=== PATIENT | female | born 1990 | race Caucasian/White ===

== ENCOUNTER 2018-07-01 13:12 | Emergency (ER) | payer OTHER ==
[2018-07-01 13:27] VITALS: BP 126/73
[2018-07-01 13:45] LABS: BILIRUBIN,URINE NEGATIVE (NEGATIVE); GLUCOSE, URINE (UA) NEGATIVE (NEGATIVE); KETONES,URINE (UA) NEGATIVE (NEGATIVE); LEUKOCYTE ESTERASE, URINE MODERATE (NEGATIVE); NITRITE,URINE NEGATIVE (NEGATIVE); OCCULT BLOOD,URINE SMALL (NEGATIVE); PROTEIN,URINE NEGATIVE (NEGATIVE); UROBILINOGEN,URINE 0.2 (NORMAL) E.U./dL (NORMAL)
[2018-07-01 13:46] LABS: CLARITY,URINE SL. CLOUDY (CLEAR)
[2018-07-01 13:57] LABS: BACTERIA,URINE Many /HPF (None Seen); SQUAMOUS EPITHELIAL CELL,UR RARE Squamous (<= Few)
[2018-07-01] MEDS ORDERED: NITROFURANTOIN MACRO 100 MG CAPSULE PO STA (15:39)
--- NOTE | 2018-07-01 15:43 | ED Physician Documentation ---
PD HPI FEMALE - Stated complaint Stated Complaint: FEM /5 WKS - Chief complaint Chief Complaint: UTI - History obtained from History obtained from: Patient - History of Present Illness Timing - onset: Yesterday (27-year-old woman with history of UTI, 5 weeks , developed dysuria and frequency yesterday without flank pain or fevers. Had a recent UTI treated with Macrobid which was helpful.) Review of Systems Constitutional: denies: Fever, Chills GI: reports: Nausea. denies: Abdominal Pain : reports: Dysuria, Frequency PD PAST MEDICAL HISTORY - Present Medications Home Medications: Ambulatory Orders Medication Instructions Recorded Confirmed Nitrofurantoin Monohyd/M-Cryst 100 mg PO BID #10 capsule 07/01/18 [Macrobid 100 mg Capsule] Pnv No.122/Iron/Folic Acid 1 07/01/18 [ Multi Tablet] - Allergies Allergies/Adverse Reactions: Allergies Allergy/AdvReac Type Severity Reaction Status Date / Time sulfamethoxazole Allergy Rash Verified 07/01/18 13:27 [From ] trimethoprim [From ] Allergy Rash Verified 07/01/18 13:27 PD ED PE NORMAL - Vitals Vital signs reviewed: Yes - General General: Alert and oriented X 3, No acute distress - Abdomen Abdomen: Soft, Non tender - Back Back: No CVA TTP - Neuro Neuro: Alert and oriented X 3, Normal speech Results - Vitals Vitals: Vital Signs - 24 hr 07/01/18 13:25 Temperature 36.8 C Heart Rate 96 Respiratory 18 Rate Blood Pressure 126/73 O2 Saturation 100 Oxygen O2 Source Room air - Labs Labs: Laboratory Tests 07/01/18 13:38 Urine Color YELLOW Urine Clarity SL. CLOUDY Urine pH 7.0 Ur Specific [place] 1.020 Urine Protein NEGATIVE Urine Glucose (UA) NEGATIVE Urine Ketones NEGATIVE Urine Occult Blood SMALL H Urine Nitrite NEGATIVE Urine Bilirubin NEGATIVE Urine Urobilinogen 0.2 (NORMAL) Ur Leukocyte Esterase MODERATE H Urine RBC 11-25 H Urine WBC >25 H Ur Squamous Epith Cells RARE Squamous Urine Bacteria Many H Ur Microscopic Review INDICATED Urine Culture Comments INDICATED Departure - Departure Disposition: 01 Home, Self Care Clinical Impression: Cystitis Condition: Good Record reviewed to determine appropriate education?: Yes Instructions: ED UTI Cystitis Female Prescriptions: Nitrofurantoin Monohyd/M-Cryst [Macrobid 100 mg Capsule] 100 mg PO BID #10 capsule Comments: We will culture your urine, the results should be done in 48-72 hours. If an antibiotic change is necessary we will call you. Return if worse in the meantime, especially if you develop increasing flank pain, fevers, or cannot keep down the medication.
== END 2018-07-01 15:54 | disposition home or self-care (01) ==
LOC: ED 13:12
DX: O23.11 Infections of bladder in pregnancy, first trimester (principal); Z3A.01 Less than 8 weeks gestation of pregnancy
CPT/HCPCS: 81001; 87086; 87491; 87591; 99283; A9270; 81003

== ENCOUNTER 2022-06-28 15:36 | Outpatient (CLI) | payer OTHER ==
--- NOTE | 2022-06-28 17:24 | Ultrasound Report ---
PROCEDURE: OB 14+ Weeks INDICATIONS: SUPERVISION OF OUTSIDE/PRIOR DATING DATA: Last menstrual period (LMP): 03/18/2022. LMP-based estimated date of delivery (YAYA): 12/23/2022. First dating scan (date and location): 06/28/2022. Estimated date of delivery (YAYA) from first dating scan: 01/04/2023. The below data below was generated using the ultrasound YAYA of 01/04/2023 TECHNIQUE: Real-time scanning was performed of the fetus, with image documentation and biometric measurements. COMPARISON: None. FINDINGS: General: A single living intrauterine gestation is present. Placenta: Placental position is anterior, without previa. heart rate: No heartbeat identified Maternal cervical canal: 4.2 cm long; normal length is 2.5 cm or more. biometrics: Biparietal diameter: 1.9 cm. 13 weeks 0 days Head circumference: 7.8 cm. 13 weeks 2 days Abdominal circumference: 6.3 cm. 13 weeks 0 days Femur length: 8.9 cm. 12 weeks 5 days Estimated weight and percentile: 65.7 g. Less than 0.5% Measurement variability for biometric dating: +/- 10 days from 12-20 weeks gestation, +/- 2 weeks fro m 20-30 weeks gestation, +/- 3 weeks for 30 weeks gestation or later. IMPRESSION: Findings are consistent with demise. An intrauterine is identified measu ring 12 weeks 6 days, however there is no heart rate. Reviewed by: Meño Munoz on 06/28/2022 5:23 PM PST Approved by: Meño Munoz on 06/28/2022 5:23 PM PST Station ID: [id number]
== END 2022-06-28 15:37 | disposition home or self-care (01) ==
LOC: DI 15:36
PROVIDERS: ATTEND Midwife
DX: O36.8310 Maternal care for abnormalities of the fetal heart rate or rhythm, first trimester, not applicable or unspecified (principal); Z3A.12 12 weeks gestation of pregnancy

== ENCOUNTER 2022-06-29 13:17 | Emergency (ER) | payer OTHER ==
[2022-06-29 13:34] VITALS: BP 124/76
--- NOTE | 2022-06-29 13:47 | ED Physician Documentation ---
PD HPI FEMALE - Stated complaint Stated Complaint: FEMALE - Chief complaint Chief Complaint: Abd Pain - History obtained from History obtained from: Patient - History of Present Illness Timing - onset: How many days ago (The patient went to her customer specialist 4 days ago for routine care. heartbeat was not located. Outpatient ultrasound ordered which was done yesterday showing intrauterine demise at 12 weeks gestation. Her customer specialist referred her here for WASTE WATER OR WATER PLANT OPERATOR consultation.) Timing - details: Other (The patient is not having any abdominal cramps vaginal bleeding nor discharge. No fevers.) Associated symptoms: No: Fever, Abdominal pain, Vaginal bleeding Contributing factors: (14 weeks by dates) OB-WORK AND FAMILY LIFE CONSULTANT History: G (4), P (3) Similar symptoms before: Has not had sx before Recently seen: Clinic Review of Systems Constitutional: reports: Other (denies recent URI/flu symptoms. Blood type O- pos). denies: Fever, Chills Nose: denies: Rhinorrhea / runny nose, Congestion Throat: denies: Sore throat Respiratory: denies: Cough GI: denies: Abdominal Pain, Vomiting, Diarrhea : denies: Discharge, Vaginal bleeding PD PAST MEDICAL HISTORY - Past Medical History Cardiovascular: None Respiratory: None Endocrine/Autoimmune: None GI: None WORK AND FAMILY LIFE CONSULTANT: None - Past Surgical History Past Surgical History: No - Present Medications Home Medications: Ambulatory Orders Medication Instructions Recorded Confirmed No122/Iron/Folic Acid 1 tab ORAL DAILY 07/01/18 06/29/22 [ Multi Tablet] Naproxen 500 mg PO BID #20 tab 06/29/22 Ondansetron Odt [Zofran] 4 mg TL Q6H PRN #10 tablet 06/29/22 miSOPROStoL [Cytotec] 800 mcg PO ONCE #4 tablet 06/29/22 - Allergies Allergies/Adverse Reactions: Allergies Allergy/AdvReac Type Severity Reaction Status Date / Time sulfamethoxazole Allergy Rash Verified 06/29/22 13:34 [From ] trimethoprim [From ] Allergy Rash Verified 06/29/22 13:34 - Social History Does the pt have substance abuse?: No - Immunizations Immunizations are current?: Yes PD ED PE NORMAL - Vitals Vital signs reviewed: Yes - General General: Alert and oriented X 3, No acute distress, Well developed/nourished - Abdomen Abdomen: Normal bowel sounds, Soft, Non distended, No organomegaly, Other (bedside U/S showing IUP about 12 weeks size, without visible heartbeat nor movement. ) - Neuro Neuro: Alert and oriented X 3, No motor deficit, Normal speech Results - Vitals Vitals: Vital Signs - 24 hr 06/29/22 13:28 Temperature 36.4 C L Heart Rate 93 Respiratory 16 Rate Blood Pressure 124/76 O2 Saturation 100 Oxygen O2 Source Room air PD MEDICAL DECISION MAKING - ED course Complexity details: reviewed old records (US report from yesterday.), d/w patient, d/w reimbursement consultant (Dr. Perla, showroom consultant for WORK AND FAMILY LIFE CONSULTANT, who will see patient in the ER. ) Departure - Departure Disposition: Home, Self Care Clinical Impression: IUFD at less than 20 weeks of gestation, Incomplete miscarriage Condition: Good Record reviewed to determine appropriate education?: Yes Plan of Treatment: Patient would like to use Misoprostol 800 mcg orally times one dose starting early tomorrow morning. Risks and benefits were reviewed with patient. Miscarriage and bleeding precautions were reviewed with patient. She should call our OB department for further instructions if she does not respond to treatment after 24 hours. Instructions: Miscarriage During, Miscarriage Recovery, ED Miscarriage Inevitable Follow-Up: Isa Carey, LEANNE [Primary Care Provider] - Prescriptions: miSOPROStoL [Cytotec] 800 mcg PO ONCE #4 tablet Naproxen 500 mg PO BID #20 tab Ondansetron Odt [Zofran] 4 mg TL Q6H PRN #10 tablet PRN Reason: Nausea / Vomiting Comments: Take the misoprostol/Cytotec 800 mcg (4 tablets) tomorrow morning as directed by the linoleum printer. Stay well-hydrated. Anticipate cramping bleeding and nausea as discussed by the linoleum printer. I did prescribe ondansetron if needed for nausea and naproxen anti-inflammatory to use twice daily with food for the next several days to week. Add Tylenol if needed. Return to the ER if significant symptoms as discussed by the linoleum printer. I sent your prescription to [facility] pharmacy.
--- NOTE | 2022-06-29 15:55 | HISTORY & PHYSICAL EXAMINATION ---
History and Physical - History and Physical Patient is a 31 year old female, at 15 weeks gestation by dates who was noted to have a demise with a fetus measuring equivalent to 12 weeks gestation on 06/28/22. She presents to the ER due to instructions by her section laborer provider. Patient is asymptomatic and denies of vaginal disharge, bleeding or cramping. Her blood type is O positive. We reviewed her US findings which was confirmed by bedside US completed by ER provider on todays visit. We reviewed the risks and benefits of continued expectant management, Cytotec induced , vs. elective suction D&C. She would like to proceed with Cytotec induced . All tissue should be saved to aid in the ident ification of products of conception. The risk and benefits of Cytotec was reviewed. We also discussed bleeding precautions. control options were discussed with patient following this . She does not desire contraception at this time. PMH/PSH - Past Medical History Respiratory: positive: None Neuro: positive: None Endocrine/Autoimmune: positive: None GI: positive: None MEDICAL SALES ASSOCIATE: positive: None : positive: None HEENT: positive: None Psych: positive: None Musculoskeletal: positive: None Derm: positive: None MRSA Hx?: No Family/Social History - Family History Discussion: Mother has a history of DVTs. - Social History Discussion: Patient denies tobacco, recreational drugs or alcohol during . She lives with her spouse and 3 children. Physical Exam - Physical Exam General: positive: No acute distress (Patient declined physical exam. She reports recent exam with her section laborer.) Discharge Plan Problem Reviewed?: Yes Disposition: 01 Home, Self Care Condition: Good Diet: Regular Shower Restrictions: No Driving Restrictions: No Weight Bearing: Full Weight Instruction Topics: Miscarriage Recovery, Miscarriage During, ED Miscarriage Inevitable Plan of Treatment: Patient would like to use Misoprostol 800 mcg orally times one dose starting early tomorrow morning. Risks and benefits were reviewed with patient. Miscarriage and bleeding precautions were reviewed with patient. She should call our OB department for further instructions if she does not respond to treatment after 24 hours. Assessment: Inevitable, missed spontaneous confirmed by US on 06/28/22. No Smoking: If you smoke, Please STOP! Call for help. Follow-up with: Isa Carey, LEANNE [Primary Care Provider] - Leobardo Nino MD [Provider Admit Priv/Credential] -
--- NOTE | 2022-06-30 19:49 | PROVIDER PROGRESS NOTE ---
Subjective - Prog Note Date Prog Note Date: 06/30/22 Prog Note Time: 19:45 Assessment/Plan - Problem List (1) Incomplete miscarriage Impression: Discussed with patient's primary provider Isa Carey billing services manager at [facility] Patient was evaluated by tree expert yesterday in ER and was given 800 mcg of cytotec after being counseled on risks, benefits, and alternatives. Patient is having some bleeding but not passing tissue. Discussed recommended cytotec 2nd dose 800 mcg. Patient has been counseled on risk of bleeding and advised to go to ER if soaking 3-4 pads per hour. Blood type is O+. If patient does not pass have recommended a formal property manager consult in the office next week.
== END 2022-06-29 16:15 | disposition home or self-care (01) ==
LOC: ED 13:17
DX: O03.4 Incomplete spontaneous abortion without complication (principal)
CPT/HCPCS: 99283

== ENCOUNTER 2022-07-01 23:12 | Emergency (ER) | payer OTHER ==
--- NOTE | 2022-07-01 23:41 | ED Physician Documentation ---
PD HPI FEMALE - Stated complaint Stated Complaint: FEMALE /BLEEDING - Chief complaint Chief Complaint: Abd Pain - History obtained from History obtained from: Patient, Other (Prior records) - Additional information Additional information: Patient is a 31-year-old female, G4, P3 Presenting for evaluation of lower abdominal cramping and heavy vaginal bleeding. Pt was approximately 15 weeks gestation who was noted to have a demise with fetus estimated to be around 12 weeks on 06/28/22. She was seen in the ER on the following day, June 29, And evaluated by WASTEWATER OPERATOR, Dr. Perla. He offered treatment options and she elected to proceed with Cytotec induced . She took 1 dose of Cytotec. She started to have bleeding yesterday and Passed the fetus In the sac in the evening.Her bleeding and pain had improved throughout today until this evening around 10:00 when she started to feel severe contractions and started having heavy vaginal bleeding. She reports already soaking through a depends and is passing clots. She does report feeling dizzy and lightheaded. Review of Systems Constitutional: denies: Fever Nose: denies: Congestion Cardiac: denies: Chest pain / pressure Respiratory: denies: Dyspnea GI: reports: Abdominal Pain. denies: Vomiting : reports: Vaginal bleeding Musculoskeletal: denies: Back pain Neurologic: denies: Syncope, Headache PD PAST MEDICAL HISTORY - Past Medical History Cardiovascular: None Respiratory: None Neuro: None Endocrine/Autoimmune: None GI: None LOCAL DELIVERY DRIVER: None : None HEENT: None Psych: None Musculoskeletal: None Derm: None - Past Surgical History Past Surgical History: No HEENT: Other - Present Medications Home Medications: Ambulatory Orders Medication Instructions Recorded Confirmed No122/Iron/Folic Acid 1 tab ORAL DAILY 07/01/18 07/01/22 [ Multi Tablet] Naproxen 500 mg PO BID #20 tab 06/29/22 07/01/22 Ondansetron Odt [Zofran] 4 mg TL Q6H PRN #10 tablet 06/29/22 07/01/22 miSOPROStoL [Cytotec] 800 mcg PO ONCE #4 tablet 06/29/22 07/01/22 - Allergies Allergies/Adverse Reactions: Allergies Allergy/AdvReac Type Severity Reaction Status Date / Time sulfamethoxazole Allergy Rash Verified 07/01/22 23:29 [From ] trimethoprim [From ] Allergy Rash Verified 07/01/22 23:29 - Social History Does the pt smoke?: No Smoking Status: Never smoker Does the pt drink ETOH?: No Does the pt have substance abuse?: No - Immunizations Immunizations are current?: Yes Immunizations: Other immun not current - POLST Patient has POLST: No PD ED PE NORMAL - General General: Alert and oriented X 3, Well developed/nourished, Other (Appears uncomfortable) - HEENT HEENT: Atraumatic, Moist mucous membranes - Neck Neck: Supple, no meningeal sign - Cardiac Cardiac: No murmur, Other (Tachycardic, regular rhythm) - Respiratory Respiratory: No respiratory distress, Clear bilaterally - Abdomen Abdomen: Soft, Other (Lower abdominal tenderness) - Female Female : Technician Preventative Medicine present (Hilda ULLOA), Other (Normal external exam, large amount of clots evacuated from vaginal canal With bleeding, Piece of tissue seen near cervix which I was unable to evacuate Despite use of forceps) - Derm Derm: Warm and dry - Extremities Extremities: No edema Results - Vitals Vitals: Vital Signs - 24 hr 07/01/22 07/01/22 07/02/22 23:18 23:31 00:32 Temperature 36.8 C 36.8 C Heart Rate 111 H 111 H 102 H Respiratory 18 18 20 Rate Blood Pressure 129/82 H 129/82 H 114/76 O2 Saturation 100 100 100 07/02/22 07/02/22 01:50 01:54 Temperature 37.3 C 36.7 C Heart Rate 100 106 H Respiratory 20 18 Rate Blood Pressure 107/49 L 107/49 L O2 Saturation 100 100 Oxygen O2 Source Room air - Labs Labs: Laboratory Tests 07/01/22 07/01/22 07/01/22 23:39 23:39 23:39 WBC 14.0 H RBC 4.00 L Hgb 11.7 L Hct 34.3 L MCV 85.8 MCH 29.3 MCHC 34.1 RDW 13.2 Plt Count 267 MPV 10.0 Neut # (Auto) 10.7 H Lymph # (Auto) 2.4 [place] # (Auto) 0.6 Eos # (Auto) 0.3 Baso # (Auto) 0.0 Absolute Nucleated RBC 0.00 Nucleated RBC % 0.0 Sodium 138 Potassium 3.5 Chloride 105 Carbon Dioxide 22 Anion Gap 11.0 BUN 8 Creatinine 0.5 Estimated GFR (MDRD) 144 Glucose 100 Calcium 9.1 Blood Type O POSITIVE Blood Type Recheck Antibody Screen NEGATIVE 07/01/22 23:42 WBC RBC Hgb Hct MCV MCH MCHC RDW Plt Count MPV Neut # (Auto) Lymph # (Auto) [place] # (Auto) Eos # (Auto) Baso # (Auto) Absolute Nucleated RBC Nucleated RBC % Sodium Potassium Chloride Carbon Dioxide Anion Gap BUN Creatinine Estimated GFR (MDRD) Glucose Calcium Blood Type Blood Type Recheck O POSITIVE Antibody Screen PD MEDICAL DECISION MAKING - ED course Complexity details: reviewed results, re-evaluated patient, d/w patient ED course: Patient presenting for evaluation of pelvic cramping and heavy bleeding, noted earlier in the week to have intrauterine demise and given Cytotec for missed .She was noted to be tachycardic. Labs were obtained. She was given fluid bolus. She declined need for pain medication other than Toradol. On pelvic exam I was able to evacuate all clots but not able to remove tissue from the Cervical also. I did consult with OB who evaluated the patient and was able to Remove the placenta.Per Dr. Brown, no need to send the placenta for pathology. Patient is feeling much better after passing the placenta.Per OB, Patient is able to be discharged home. If her bleeding reoccurs then she would likely need a D&C. Patient is comfortable with plan for discharge and advised on concerning symptoms to return for. 1248 - D/W Dr. Brown after Pelvic exam. She is familiar with the patient's case and will come down to the ER to see her. Departure - Departure Disposition: 01 Home, Self Care Clinical Impression: Miscarriage Condition: Good Instructions: Miscarriage Dc Follow-Up: Carito Brown MD [Provider Admit Priv/Credential] - Comments: Your bleeding and cramping should hopefully improve now that the placenta has come out. Please continue with using NSAIDs such as naproxen or ibuprofen as needed for any discomfort or pain. If you start to have worsening cramping or bleeding again please return to the emergency department. Discharge Date/Time: 07/02/22 01:57
[2022-07-01] MEDS: KETOROLAC 30 MG/ML VIAL IVP STA (23:48)
[2022-07-01] MEDS: SODIUM CHLORIDE 0.9% 1,000 ML IV STA (23:48)
[2022-07-01 23:50] LABS: BASOPHILS % (AUTO) 0.3 %; EOSINOPHILS # (AUTO) 0.3 10^3/uL (0.0-0.7); EOSINOPHILS % (AUTO) 1.9 %; HCT - HEMATOCRIT 34.3 % (37.0-47.0); HGB - HEMOGLOBIN 11.7 g/dL (12.0-16.0); LYMPHOCYTES # (AUTO) 2.4 10^3/uL (1.5-3.5); LYMPHOCYTES % (AUTO) 17.2 %; MEAN CORPUSCULAR HEMOGLOBIN 29.3 pg (27.0-31.0); MEAN CORPUSCULAR HGB CONC 34.1 g/dL (32.0-36.0); MEAN CORPUSCULAR VOLUME 85.8 fL (81.0-99.0); MONOCYTES # (AUTO) 0.6 10^3/uL (0.0-1.0); NEUTROPHILS # (AUTO) 10.7 10^3/uL (1.5-6.6); NEUTROPHILS % (AUTO) 76.3 %; PLT - PLATELET COUNT 267 10^3/uL (130-450); RED CELL DISTRIBUTION WIDTH 13.2 % (12.0-15.0)
[2022-07-02 00:02] LABS: CALCIUM 9.1 mg/dL (8.5-10.3); CREATININE 0.5 mg/dL (0.4-1.0); POTASSIUM 3.5 mmol/L (3.5-5.0)
[2022-07-02 01:51] VITALS: BP 107/49
[2022-07-02] MEDS: MORPHINE 2 MG/ML CARPUJECT IVP STA (01:52)
[2022-07-02] MEDS: ONDANSETRON 4 MG/2 ML VIAL IVP STA (01:53)
--- NOTE | 2022-07-02 01:53 | CONSULTATION NOTE ---
Referring Provider Consult Date: 07/02/22 Chief Complaint - Chief Complaint Chief Complaint: incomplete History of Present Illness - History Obtained From Records Reviewed: Reviewed previous history - History of Present Illness HPI Comment/Other: Patient diagnosed with miscarriage of about 12 weeks in the ER 07/29. She received cytotec and passed tissue yesterday. Today she began having worsening cramping and increased bleeding, soaking a depends. She denies fevers/chills. History - Past Medical History Cardiovascular: reports: None Respiratory: reports: None Neuro: reports: None Endocrine/Autoimmune: reports: None GI: reports: None METALLOGRAPHER: reports: None : reports: None HEENT: reports: None Psych: reports: None Musculoskeletal: reports: None Derm: reports: None MRSA Hx?: No - Past Surgical History HEENT: reports: Other - Family & Social History Living Situation: With family - POLST Patient has POLST: No Meds/Allgy - Home Medications Home Medications: Ambulatory Orders Medication Instructions Recorded Confirmed No122/Iron/Folic Acid 1 tab ORAL DAILY 07/01/18 07/01/22 [ Multi Tablet] Naproxen 500 mg PO BID #20 tab 06/29/22 07/01/22 Ondansetron Odt [Zofran] 4 mg TL Q6H PRN #10 tablet 06/29/22 07/01/22 miSOPROStoL [Cytotec] 800 mcg PO ONCE #4 tablet 06/29/22 07/01/22 - Allergies Allergies/Adverse Reactions: Allergies Allergy/AdvReac Type Severity Reaction Status Date / Time sulfamethoxazole Allergy Rash Verified 07/01/22 23:29 [From ] trimethoprim [From ] Allergy Rash Verified 07/01/22 23:29 Review of Systems - Constitutional Constitutional: denies: Fever, Chills - Cardiovascular Cariovascular: denies: Chest pain - Genitourinary Genitourinary: reports: Other - All Other Systems All Other Systems: reports: Reviewed and negative (Patient with worsening cramping and increased bleeding) Exam - Vital Signs Reviewed Vital Signs: Yes Vital Signs: Vital Signs x48h Temp Pulse Resp BP Pulse Ox 07/02/22 00:32 102 H 20 114/76 100 07/01/22 23:31 98.2 F 111 H 18 129/82 H 100 07/01/22 23:18 98.2 F 111 H 18 129/82 H 100 - Physical Exam General Appearance: positive: No acute distress Comments/Other: : clots cleared from vaginal vault. On exam patient had placental tissue in cervical os. Ring forceps were used to remove placental tissue. After removal of placental tissue there was a significant decrease in amount of bleeding from cervical os. Patient stated cramping had improved. Conclusion/Plan - Problem List (1) Incomplete miscarriage Conclusion/Plan: Placental tissue removed from cervical os. Discussed with patient if she experiences heavy bleeding- soaking 3-4 pads an hour, she needs to return to the ER and next step would be a dilation and curettage. Advised patient to return if fever, chills, or any other concerns. Patient verbalized understanding and no further questions. Rh+ - Lab Results Fish Bones: 07/01/22 23:39 07/01/22 23:39
== END 2022-07-02 01:57 | disposition home or self-care (01) ==
LOC: ED 23:12
DX: O03.4 Incomplete spontaneous abortion without complication (principal)
CPT/HCPCS: 36415; 80048; 85025; 86850; 86900; 86901; 96361; 96374; 99284

== ENCOUNTER 2022-08-25 08:35 | Emergency (ER) | payer OTHER ==
[2022-08-25 10:10] LABS: BILIRUBIN,URINE NEGATIVE (NEGATIVE); GLUCOSE, URINE (UA) NEGATIVE (NEGATIVE); KETONES,URINE (UA) NEGATIVE (NEGATIVE); LEUKOCYTE ESTERASE, URINE MODERATE (NEGATIVE); NITRITE,URINE POSITIVE (NEGATIVE); OCCULT BLOOD,URINE LARGE (NEGATIVE); PROTEIN,URINE 100 mg/dL (NEGATIVE); UROBILINOGEN,URINE 0.2 (NORMAL) E.U./dL (NORMAL)
[2022-08-25 10:14] LABS: CLARITY,URINE CLOUDY (CLEAR)
[2022-08-25 10:15] LABS: HCG UR QUAL NEGATIVE
[2022-08-25 10:27] LABS: BACTERIA,URINE Moderate /HPF (None Seen); SQUAMOUS EPITHELIAL CELL,UR FEW Squamous (<= Few); WBC,URINE >25 /HPF (0-5)
[2022-08-25] MEDS ORDERED: NITROFURANTOIN MACRO 100 MG CAPSULE PO STA (12:30)
--- NOTE | 2022-08-25 12:32 | ED Physician Documentation ---
PD HPI FEMALE - Stated complaint Stated Complaint: FEMALE - Chief complaint Chief Complaint: Abd Pain - History obtained from History obtained from: Patient - Additional information Additional information: Patient is a 31-year-old female presenting for evaluation of dysuria, urinary frequency and urgency for the past 2 to 3 days. She has a history of UTIs and this feels similar to the past. She denies concerns for . No vaginal bleeding or discharge. She denies concerns for STDs but when asked states that she would like to get checked just to make sure. She does not want any pr ophylactic treatment.She denies abdominal pain, pelvic pain, fever, cough or congestion. 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 : None HEENT: None Psych: None Musculoskeletal: None Derm: None - Past Surgical History Past Surgical History: No HEENT: Other - Present Medications Home Medications: Ambulatory Orders Medication Instructions Recorded Confirmed Nitrofurantoin [Macrobid] 1 cap PO BID #10 cap 08/25/22 - Allergies Allergies/Adverse Reactions: Allergies Allergy/AdvReac Type Severity Reaction Status Date / Time sulfamethoxazole Allergy Rash Verified 08/25/22 09:07 [From ] trimethoprim [From ] Allergy Rash Verified 08/25/22 09:07 - Social History Does the pt smoke?: No Smoking Status: Never smoker Does the pt drink ETOH?: No Does the pt have substance abuse?: No - Immunizations Immunizations are current?: Yes Immunizations: Other immun not current - POLST Patient has POLST: No PD ED PE NORMAL - General General: Alert and oriented X 3, No acute distress, Well developed/nourished - HEENT HEENT: Atraumatic - Neck Neck: Supple, no meningeal sign - Cardiac Cardiac: RRR - Respiratory Respiratory: No respiratory distress - Abdomen Abdomen: Soft, Non tender, Non distended - Derm Derm: Warm and dry Results - Vitals Vitals: Vital Signs - 24 hr 08/25/22 08/25/22 09:04 12:34 Temperature 37.2 C 37 C Heart Rate 86 92 Respiratory 16 16 Rate Blood Pressure 119/66 113/78 O2 Saturation 100 100 Oxygen O2 Source Room air - Labs Labs: Laboratory Tests 08/25/22 09:15 Urine Color YELLOW Urine Clarity CLOUDY Urine pH 6.0 Ur Specific [place] 1.025 Urine Protein 100 H Urine Glucose (UA) NEGATIVE Urine Ketones NEGATIVE Urine Occult Blood LARGE H Urine Nitrite POSITIVE H Urine Bilirubin NEGATIVE Urine Urobilinogen 0.2 (NORMAL) Ur Leukocyte Esterase MODERATE H Urine RBC 11-25 H Urine WBC >25 H Ur Squamous Epith Cells FEW Squamous Urine Bacteria Moderate H Ur Microscopic Review INDICATED Urine Culture Comments INDICATED Urine HCG, Qual NEGATIVE PD Medical Decision Making - ED course Complexity details: reviewed results, re-evaluated patient ED course: Patient seen for UTI symptoms. Her urine is concerning for an infection. She does not appear septic. She has no tenderness on exam. Appears appropriate for p.o. antibiotics. She declines pelvic exam but is okay with self swab as she would like to be checked for STDs. She understands that we are only checking for certain STDs and the HIV and hepatitis testing should be done through her PCP. She again does not have any pelvic complaints to suggest ovarian torsion or abscess. Patient counseled on need to complete the course of antibiotics as well as concerning symptoms to return for. Departure - Departure Disposition: 01 Home, Self Care Clinical Impression: UTI (urinary tract infection) Condition: Stable Instructions: ED UTI Cystitis Female Prescriptions: Nitrofurantoin [Macrobid] 1 cap PO BID #10 cap Comments: I started you on antibiotic for urinary tract infection and sent this prescription to the [facility] pharmacy. You have also requested STD testing which has been ordered and is pending at time of discharge. If there are abnormal findings I will call you. Return to the ER if you have any worsening symptoms. Discharge Date/Time: 08/25/22 12:52
[2022-08-25 12:35] VITALS: BP 113/78
[2022-08-25 18:31] LABS: BACTERIAL VAGINOSIS DNA NEGATIVE (NEGATIVE); CANDIDA GLABRATA DNA NEGATIVE (NEGATIVE); CANDIDA GROUP DNA NEGATIVE (NEGATIVE); CANDIDA KRUSEI DNA NEGATIVE (NEGATIVE); TRICHOMONAS VAGINALIS DNA NEGATIVE (NEGATIVE)
[2022-08-25 21:39] LABS: CHLAMYDIA TRACHOMATIS DNA NEGATIVE (NEGATIVE); NEISSERIA GONORRHOEAE DNA NEGATIVE (NEGATIVE)
== END 2022-08-25 12:52 | disposition home or self-care (01) ==
LOC: ED 08:35
DX: N39.0 Urinary tract infection, site not specified (principal); Z11.3 Encounter for screening for infections with a predominantly sexual mode of transmission
CPT/HCPCS: 81001; 81025; 81514; 87086; 87491; 87591; 99283; A9270; 81003; 87181; 87661

== ENCOUNTER 2022-10-13 06:23 | Emergency (ER) | payer OTHER ==
[2022-10-13 06:32] VITALS: BP 110/65
[2022-10-13 06:46] LABS: BILIRUBIN,URINE NEGATIVE (NEGATIVE); GLUCOSE, URINE (UA) NEGATIVE (NEGATIVE); KETONES,URINE (UA) NEGATIVE (NEGATIVE); LEUKOCYTE ESTERASE, URINE MODERATE (NEGATIVE); NITRITE,URINE POSITIVE (NEGATIVE); OCCULT BLOOD,URINE LARGE (NEGATIVE); PROTEIN,URINE 100 mg/dL (NEGATIVE); UROBILINOGEN,URINE 0.2 (NORMAL) E.U./dL (NORMAL)
[2022-10-13 06:52] LABS: CLARITY,URINE CLOUDY (CLEAR)
--- NOTE | 2022-10-13 07:00 | ED Physician Documentation ---
PD HPI FEMALE - Stated complaint Stated Complaint: FEMALE - Chief complaint Chief Complaint: UTI - History obtained from History obtained from: Patient - History of Present Illness Timing - onset: Yesterday Timing - duration: Days (1-2) Timing - details: Gradual onset, Still present Associated symptoms: Dysuria. 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 HEENT: None Psych: None Musculoskeletal: None Derm: None Other Past Medical History: UTI - Past Surgical History Past Surgical History: No HEENT: Other - Present Medications Home Medications: Ambulatory Orders Medication Instructions Recorded Confirmed Nitrofurantoin [Macrobid] 100 mg PO BID 14 Days #28 cap 10/13/22 Phenazopyridine HCl [Pyridium] 100 mg PO TID PRN #15 tablet 10/13/22 - Allergies Allergies/Adverse Reactions: Allergies Allergy/AdvReac Type Severity Reaction Status Date / Time sulfamethoxazole Allergy Rash Verified 10/13/22 06:28 [From ] trimethoprim [From ] Allergy Rash Verified 10/13/22 06:28 - Social History Does the pt smoke?: No Smoking Status: Never smoker Does the pt drink ETOH?: No Does the pt have substance abuse?: No - Immunizations Immunizations are current?: Yes Immunizations: Other immun not current - POLST Patient has POLST: No PD ED PE NORMAL - Vitals Vital signs reviewed: Yes - General General: Alert and oriented X 3, No acute distress, Well developed/nourished - Female Female : Deferred - Back Back: No CVA TTP - Derm Derm: Normal color, Warm and dry Results - Vitals Vitals: Vital Signs - 24 hr 10/13/22 06:29 Temperature 37.0 C Heart Rate 87 Respiratory 18 Rate Blood Pressure 110/65 O2 Saturation 100 Oxygen O2 Source Room air - Labs Labs: Laboratory Tests 10/13/22 06:35 Urine Color BROWN Urine Clarity CLOUDY Urine pH 6.0 Ur Specific [place] 1.025 Urine Protein 100 H Urine Glucose (UA) NEGATIVE Urine Ketones NEGATIVE Urine Occult Blood LARGE H Urine Nitrite POSITIVE H Urine Bilirubin NEGATIVE Urine Urobilinogen 0.2 (NORMAL) Ur Leukocyte Esterase MODERATE H Urine RBC TNTC H Urine WBC 11-25 H Ur Squamous Epith Cells MANY Squamous H Urine Bacteria Moderate H Ur Microscopic Review INDICATED Urine Culture Comments NOT INDICATED PD Medical Decision Making - ED course Complexity details: reviewed results (UA c/w UTI.), considered differential (feeling similar to prior uTIs. we discussed some measures to reduce chance of uTIs with urinating soon after intercourse, wiping pattern, etc which she mostly does alreay. ), d/w patient Departure - Departure Disposition: 01 Home, Self Care Clinical Impression: UTI (urinary tract infection) Condition: Stable Record reviewed to determine appropriate education?: Yes Instructions: ED UTI Cystitis Female Follow-Up: [facility] [Provider Group] Prescriptions: Nitrofurantoin [Macrobid] 100 mg PO BID 14 Days #28 cap Phenazopyridine HCl [Pyridium] 100 mg PO TID PRN #15 tablet PRN Reason: Abdominal Pain Comments: Stay well-hydrated. You can use the phenazopyridine 3 times daily if needed for discomfort. Tylenol or ibuprofen as needed for symptoms as well. Nitrofurantoin (Macrobid) twice daily for the next 5 to 7 days for the infection. I wrote the prescription to be for 14 days so that you have essentially to courses of the antibiotic. This allows you to have some available for the next bladder infection since it seems to be happening semiregularly. We will do a urine culture and call you if we need to change the antibiotic choice based on the results. This typically takes a couple of days. I sent the prescription to [facility] pharmacy here in [place]. Recheck if not improving well over the next few days and return if fevers, kidney pain, vomiting, other concerns. Discharge Date/Time: 10/13/22 07:21
[2022-10-13 07:01] LABS: BACTERIA,URINE Moderate /HPF (None Seen); RBC,URINE TNTC /HPF (0-5); SQUAMOUS EPITHELIAL CELL,UR MANY Squamous (<= Few)
[2022-10-13] MEDS ORDERED: NITROFURANTOIN MACRO 100 MG CAPSULE PO STA (07:10)
[2022-10-13] MEDS ORDERED: PHENAZOPYRIDINE 100 MG TABLET PO STA (07:10)
== END 2022-10-13 07:21 | disposition home or self-care (01) ==
LOC: ED 06:23
DX: N39.0 Urinary tract infection, site not specified (principal)
CPT/HCPCS: 81001; 99283; A9270; 81003; 87086

== ENCOUNTER 2023-09-20 08:00 | Outpatient (CLI) | payer OTHER | END 2023-09-20 23:59 | disposition home or self-care (01) | LOC: LAB.N 08:00 | PROVIDERS: ATTEND Family Medicine | DX: N39.0 Urinary tract infection, site not specified (principal) | CPT/HCPCS: 87086; 87181 ==

== ENCOUNTER 2024-01-13 15:36 | Emergency (ER) | payer OTHER ==
--- NOTE | 2024-01-13 15:55 | ED Physician Documentation ---
PD HPI UPPER EXT INJURY - Stated complaint Stated Complaint: RT HAND LAC - Chief complaint Chief Complaint: Laceration - History obtained from History obtained from: Patient (She is up-to-date on tetanus. 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 HEENT: None Psych: None Musculoskeletal: None Derm: None - Past Surgical History Past Surgical History: No HEENT: Other - Present Medications Home Medications: Ambulatory Orders Medication Instructions Recorded Confirmed No Known Home Medications 01/13/24 01/13/24 - Allergies Allergies/Adverse Reactions: Allergies Allergy/AdvReac Type Severity Reaction Status Date / Time sulfamethoxazole Allergy Rash Verified 01/13/24 15:39 [From ] trimethoprim [From ] Allergy Rash Verified 01/13/24 15:39 - Social History Does the pt smoke?: No Smoking Status: Never smoker Does the pt drink ETOH?: No Does the pt have substance abuse?: No - Immunizations Immunizations are current?: Yes Immunizations: Other immun not current - POLST Patient has POLST: No PD ED PE NORMAL - Vitals Vital signs reviewed: Yes - General General: Alert and oriented X 3, No acute distress - Extremities Extremities: Other (There is a diminutive shallow laceration on the radial side of the proximal phalanx of the right middle finger without distal neurovascular compromise.) - Neuro Neuro: Alert and oriented X 3 Results - Vitals Vitals: Vital Signs - 24 hr 01/13/24 15:39 Temperature 36.6 C Heart Rate 89 Respiratory 16 Rate Blood Pressure 121/69 O2 Saturation 99 Oxygen O2 Source Room air Procedures - Laceration (location) Right middle finger Length in cm: 0.3 Wound type: Linear, Into subcut fat Neurovascular status: Sensory intact, Motor intact Wound preparation: Irrigated copiously NS Skin layer closure: Dermabond Other: Tetanus UTD Departure - Departure Disposition: 01 Home, Self Care Clinical Impression: Laceration Condition: Good Record reviewed to determine appropriate education?: Yes Instructions: ED Laceration Hand Comments: As discussed, the laceration was quite small but did need something and we put some glue on it. Given the location you may have to reapply some superglue after couple of days and repeat that to keep it closed while it heals over the next week or so. After that you can just use a Band-Aid. Return if worse.
[2024-01-13] MEDS: BUFFERED LIDOCAINE 10 ML SYRINGE SUBQ STA (16:00)
[2024-01-13 16:14] VITALS: BP 121/71; O2SAT 100
== END 2024-01-13 16:10 | disposition home or self-care (01) ==
LOC: ED 15:36
DX: S61.210A Laceration without foreign body of right index finger without damage to nail, initial encounter (principal); W26.8XXA Contact with other sharp object(s), not elsewhere classified, initial encounter
CPT/HCPCS: 12001; 99283